=== PATIENT | male | born 1990 | race Caucasian/White ===

== ENCOUNTER 2016-11-25 21:12 | Emergency (ER) | payer OTHER ==
[~2016-11-25] VITALS: Ht 165.1 cm; Wt 63.6 kg
[~2016-11-25 21:12] MED LIST: DOXYCYCLINE 10100 MG PO
[2016-11-25 21:14] VITALS: TEMP 98.4
[2016-11-26 00:54] VITALS: BP 120/70; PULSE 88
== END 2016-11-26 00:56 | disposition home or self-care (01) ==
LOC: COL.ER 21:12
DX: G43.109 Migraine with aura, not intractable, without status migrainosus (principal)
CPT/HCPCS: J1200; J1885; J2550; J7030